=== PATIENT | female | born 1960 ===

== ENCOUNTER 2023-11-17 05:27 | Day surgery (SDC) | payer OTHER ==
[2023-11-12 10:24] LABS: HEMATOCRIT 40.1 % (36.0-45.00); HEMOGLOBIN 13.7 g/dL (12.0-15.00); MEAN CELL VOLUME 85.7 fL (80.00-100.00); MEAN CORPUSCULAR HEMOGLOBIN 29.3 pg (27.00-32.0); MEAN CORPUSCULAR HGB CONC 34.2 g/dl (32.0-36.0); PLATELET COUNT 250 K/uL (150-450); RED BLOOD COUNT 4.68 M/uL (4.00-6.00); RED CELL DISTRIBUTION WIDTH 14.5 % (11.5-14.5)
[2023-11-12 10:32] LABS: PH,URINE 7.5 (5.0-8.0); URINE APPEARANCE Clear; URINE BILIRRUBIN Negative (NEGATIVE); URINE BLOOD Negative; URINE COLOR Yellow; URINE GLUCOSE Negative (NEGATIVE); URINE KETONE Negative (NEGATIVE); URINE LEUKOCYTE Moderate; URINE NITRATE Negative; URINE PROTEIN Negative (NEGATIVE)
[2023-11-12 10:36] LABS: URINE BACTERIA 1792.8 uL (0.0-1933); URINE EPITHELIAL CELLS 69.7 uL (0.0-38.8); URINE RBC 2.9 uL (0.0-20.8); URINE WBC 95.3 uL (0.0-23.2)
[2023-11-12 10:43] LABS: URINE CAST 0.15 uL (0.0-1.40)
[2023-11-12 11:14] LABS: INR 1.02; PARTIAL THROMBOPLASTIN TIME 29.2 SECONDS (22.0-34.0); PROTHROMBIN TIME 10.7 SECONDS (9.0-11.5)
[2023-11-12 11:19] LABS: ALBUMIN 3.6 gm/dL (3.4-5.0); BILIRUBIN TOTAL 0.44 mg/dL (0.3-1.2); CALCIUM 9.1 mg/dL (8.5-10.1); CREATININE SERUM 0.56 mg/dL (0.55-1.02); GFR 110.05; GLOBULINA 3.8 G/DL (2.4-3.5); POTASSIUM 4.47 mEq/L (3.5-5.1); TOTAL PROTEIN 7.4 gm/dL (6.4-8.2)
[2023-11-12 17:02] VITALS: BP 134/76
[~2023-11-17] VITALS: Ht 157.5 cm; Wt 82.6 kg
[~2023-11-17 05:27] MED LIST: FOSAMAX70 MG PO; MELOXICAM15 MG PO; XIGDUO XR 5 MG1 EACH PO
[2023-11-17] MEDS ORDERED: CEFAZOLIN SODIUM 1,000 MG VIAL ONE ×2 (07:36→08:26)
[2023-11-17] MEDS ORDERED: POVIDONE-IODINE 118 ML BOTT TOP ONE (08:39)
== END 2023-11-17 15:40 | disposition home or self-care (01) ==
LOC: CIR.AMB 05:27 → U 05:27 → CIR.AMB 10:00
PROVIDERS: ATTEND Obstetrics & Gynecology
DX: R87.612 Low grade squamous intraepithelial lesion on cytologic smear of cervix (LGSIL) (principal); N72 Inflammatory disease of cervix uteri; E11.9 Type 2 diabetes mellitus without complications